=== PATIENT | female | born 1950 | race Two or more races ===

== ENCOUNTER 2021-05-13 10:45 | Inpatient (IN) | payer OTHER ==
[~2021-05-13] VITALS: Ht 152.4 cm; Wt 72.6 kg
[2021-05-13] MEDS ORDERED: ARICEPT10 MG PO (15:27)
[2021-05-23] MEDS ORDERED: INTESTINEX680 M1 PO (17:27)
[2021-05-23] MEDS ORDERED: HYOSCYAMINE0.125 M1 SL (17:27)
[2021-05-23] MEDS ORDERED: OXYC1TAB9 PO (17:27)
[2021-05-23] MEDS ORDERED: PROTONIX40 MG PO (17:28)
== END 2021-05-23 20:13 | disposition home or self-care (01) | DRG 331 ==
LOC: SURH 05-20 06:49 → O/R 05-20 06:49 → SURH 05-20 10:45
PROVIDERS: ADMIT Surgery; ATTEND Surgery
PROC: 07BB4ZZ Excision of Mesenteric Lymphatic, Percutaneous Endoscopic Approach (ICD-10-PCS; 2021-05-20)
PROC: 0DTF4ZZ Resection of Right Large Intestine, Percutaneous Endoscopic Approach (ICD-10-PCS; principal; 2021-05-20 17:15)
DX: D12.0 Benign neoplasm of cecum (principal); R59.0 Localized enlarged lymph nodes; R19.4 Change in bowel habit